=== PATIENT | male | born 1985 | race Caucasian/White ===

== ENCOUNTER 2023-02-26 03:38 | Emergency (ER) | payer SELFPAY ==
--- NOTE | 2023-02-26 04:36 | ER ---
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 SMALL OPEN WOUND TO MIDDLE OF FINGER. Coronavirus screen: At this time, the client does not indicate any symptoms associated with coronavirus-19. Ebola Screen: No symptoms or risks identified at this time. Initial Sepsis Screen: Does the patient meet any 2 criteria? No. Patient's initial sepsis screen is negative. Does the patient have a suspected source of infection? No. Patient's initial sepsis screen is negative. Risk Assessment: Do you want to hurt yourself or someone else? Patient reports no desire to harm self or others. Onset of symptoms was February 25, 2023. 04:00 Method Of Arrival: Ambulatory j7 04:00 Acuity: DONNA 4 jj7 Triage Assessment: 04:05 General: Appears in no apparent distress. comfortable, Behavior is calm, cooperative, jj7 appropriate for age. Pain: Complains of pain in palmar aspect of distal phalanx of left index finger Pain currently is 1 out of 10 on a pain scale. Musculoskeletal: No deficits noted. Injury Description: Puncture. 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 - Social history:: Smoking status: Patient reports the use of cigarette tobacco products, cigars, Patient uses alcohol, but reports only rare drinking. street drugs, marijuana. - Family history:: not pertinent. Screenin:07 [facility] ED Fall Risk Assessment (Adult) History of falling in the last 3 months, jj7 including since admission No falls in past 3 months (0 pts) Confusion or Disorientation No (0 pts) Intoxicated or Sedated No (0 pts) Impaired Gait No (0 pts) Mobility Assist Device Used No (0 pt) Altered Elimination No (0 pt) Score/Fall Risk Level 0 - 2 = Low Risk Oriented to surroundings, Maintained a safe environment. Abuse screen: Denies threats or abuse. Nutritional screening: No deficits noted. Tuberculosis screening: No symptoms or risk factors identified. Assessment: 04:07 Reassessment: SEE TRIAGE ASSESSMENT. jj7 Vital Signs: 04:00 BP 135 / 92; Pulse 95; Resp 18; Temp 98.1; Pulse Ox 100% ; Weight 86.18 kg; Height 6 jj7 ft. 6 in. ; Pain 10; 04:00 Body Mass Index 21.96 (86.18 kg, 198.12 cm) jj7 04:00 Pain Scale: Adult jj7 ED Course: 03:42 Patient arrived in ED. jj6 04:05 Triage completed. jj7 04:05 Arm band placed on right wrist. jj7 04:15 Aubrey Rosales MD is Attending Physician. sp4 04:28 Azra Amaya, DARCY is Primary Nurse. nw1 04:35 Ghulam Mayorga MD is Referral Physician. sp4 Administered Medications: 05:08 Drug: Trimethoprim-Sulfamethoxazole PO (160 mg-800 mg (DS) 1 tablet PO once Route: PO; nw1 05:08 Drug: traMADol PO 100 mg PO once Route: PO; nw 05:08 Drug: Ibuprofen PO 800 mg PO once Route: PO; 05:08 Drug: Ondansetron PO 4 mg PO once Route: PO; nw 05:15 Drug: Tetanus-Diphtheria Toxoid IM Adult 0.5 ml IM once; Provide Vaccine Information nw1 Statement (VIS). 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 jj7 Outcome: 04:35 Discharge ordered by . curtis 05:18 Discharged to home ambulatory, nw1 05:18 Condition: good 05:18 Discharge instructions given to patient, Instructed on discharge instructions, follow up and referral plans. medication usage, Demonstrated understanding of instructions, follow-up care, medications, Prescriptions given X 2, 05:18 Patient left the ED. nw1 Signatures: Elysia Soni Juwairiyah, RN RN jj7 Aubrey Rosales MD MD sp4 Azra Amaya RN RN nw1 Corrections: (The following items were deleted from the chart) 04:06 04:05 PSHx: Unable to Obtain; jj7 jj7
--- NOTE | 2023-02-26 04:37 | EDPHYS ---
Physician Documentation [facility] Name: Joel Dai Age: 37 yrs Sex: Male : 1985 Arrival Date: 02/26/2023 Time: 03:38 Bed 19 Private MD: ED Physician Aubrey Rosales HPI: 02/26 04:15 This 37 yrs old Male presents to ER via Ambulatory with complaints of Finger sp4 Injury. 04:31 Pressure injection injury with water in the left index finger pad with pain redness sp4 swelling and puncture wound.. Patient states injury occurred in AM yesterday... Historical: - Allergies: 04:05 No Known Allergies; jj7 - PMHx: 04:05 None; jj7 - PSHx: 04:05 None; jj7 - Immunization history:: Adult Immunizations not up to date. - Social history:: Smoking status: Patient reports the use of cigarette tobacco products, cigars, Patient uses alcohol, but reports only rare drinking. street drugs, marijuana. - Family history:: not pertinent. ROS: 04:31 Constitutional: Negative for fever, chills, and weight loss, MS/Extremity: Positive sp4 left index finger pain 04:31 All other systems are negative, sp4 Exam: 04:31 Constitutional: This is a well developed, well nourished patient who is awake, alert, sp4 and in no acute distress. Head/Face: Normocephalic, atraumatic. Eyes: Pupils equal round and reactive to light, extra-ocular motions intact. Lids and lashes normal. Conjunctiva and sclera are not injected. Cornea within normal limits. Periorbital areas with no swelling, redness, or edema. ENT: Nares patent. No nasal discharge, no septal abnormalities noted. Tympanic membranes are normal and external auditory canals are clear. Oropharynx with no redness, swelling, or masses, exudates, or evidence of obstruction, uvula midline. Mucous membranes moist. Neck: Trachea midline, no thyromegaly or masses palpated, and no cervical lymphadenopathy. Supple, full range of motion without nuchal rigidity, or vertebral point tenderness. Chest/axilla: Normal chest wall appearance and motion. Nontender with no deformity. No lesions are appreciated. Cardiovascular: Regular rate and rhythm with a normal S1 and S2. No gallops, murmurs, or rubs. Normal PMI, no JVD. No pulse deficits. Respiratory: Lungs have equal breath sounds bilaterally, clear to auscultation and percussion. No rales, rhonchi or wheezes noted. No increased work of breathing, no retractions or nasal flaring. Abdomen/GI: Soft, non-tender, with normal bowel sounds. No distension or tympany. No guarding or rebound. No evidence of tenderness throughout. Back: No spinal tenderness. No costovertebral tenderness. Skin: Warm, dry with normal turgor. Normal color with no rashes, no lesions, and no evidence of cellulitis. MS/ Extremity: Pulses equal, no cyanosis. Neurovascular intact. Full, normal range of motion. Positive left index finger pain, mild swelling, redness, puncture wound left finger pad distal phalanx Neuro: Awake and alert, GCS 15, oriented to person, place, time, and situation. Cranial nerves II-XII grossly intact. Motor strength 5/5 in all extremities. Sensory grossly intact. Psych: Awake, alert, with orientation to person, place and time. Behavior, mood, and affect are within normal limits Vital Signs: 04:00 BP 135 / 92; Pulse 95; Resp 18; Temp 98.1; Pulse Ox 100% ; Weight 86.18 kg; Height 6 jj7 ft. 6 in. ; Pain 1/10; 04:00 Body Mass Index 21.96 (86.18 kg, 198.12 cm) jj7 04:00 Pain Scale: Adult jj7 Procedures: 04:31 Wound cleansing and irrigation with dressing applied to the left index finger . sp4 MDM: 04:21 Patient medically screened. sp4 04:31 Data reviewed: vital signs, nurses notes. ED course: We will advise daily dressing sp4 changes and wound care, Bactrim p.o. twice a day for 10 days. Tetanus shot administered in the ER. High-dose ibuprofen every 8 hours. Administered Medications: 05:08 Drug: Trimethoprim-Sulfamethoxazole PO (160 mg-800 mg (DS) 1 tablet PO once Route: PO; nw 05:08 Drug: traMADol PO 100 mg PO once Route: PO; 05:08 Drug: Ibuprofen PO 800 mg PO once Route: PO; nw1 05:08 Drug: Ondansetron PO 4 mg PO once Route: PO; nw1 05:15 Drug: Tetanus-Diphtheria Toxoid IM Adult 0.5 ml IM once; Provide Vaccine Information nw1 Statement (VIS). 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 injury to the left index finger with puncture wound sp4 Followup: sp4 - With: Ghulam Mayorga MD - When: 5 - 6 days - Reason: Recheck today's complaints Discharge Instructions: - Discharge Summary Sheet sp4 - Puncture Wound, [id number] sp4 Forms: - Patient Portal Instructions sp4 Prescriptions: - Ibuprofen 800 mg Oral Tablet - take 1 tablet ORAL route every 8 hours As needed take with food; 30 tablet; sp4 Refills: 0, Product Selection Permitted - Bactrim DS 800-160 mg Oral Tablet - take 1 tablet ORAL route every 12 hours for 10 days; 20 tablet; Refills: 0, sp4 Product Selection Permitted Signatures: Janeen Rivas RN RN jj7 Aubrey Rosales MD MD sp4 Azra Amaya RN RN nw1 Corrections: (The following items were deleted from the chart) 04:06 04:05 PSHx: Unable to Obtain; jj7 jj7
[2023-02-26] MEDS ORDERED: IBUPROFEN 400 MG TAB ONE (05:05)
[2023-02-26] MEDS ORDERED: TRAMADOL HCL 50 MG TAB ONE (05:05)
[2023-02-26] MEDS ORDERED: ONDANSETRON 4 MG (ODT) TAB ONE (05:06)
[2023-02-26] MEDS ORDERED: TDAP (DIPHTH,PERTUSS(ACELL),TET VAC) 0.5 ML VIAL IMVAC ONE (05:06)
[2023-02-26] MEDS ORDERED: SMZ./TMP. 800/160 MG TABLET ONE (05:09)
[2023-02-26 05:24] VITALS: BP 135/92; TEMP 98.1; O2SAT 100
== END 2023-02-26 05:18 | disposition home or self-care (01) ==
LOC: ER 03:38
DX: S61.231A Puncture wound without foreign body of left index finger without damage to nail, initial encounter (principal); W31.89XA Contact with other specified machinery, initial encounter
CPT/HCPCS: 90471; 99284; Q0162